=== PATIENT | female | born 1945 | race Hispanic/Latino ===

== ENCOUNTER 2017-02-26 09:15 | Outpatient (CLI) | payer MEDICARE ==
--- NOTE | 2017-02-26 09:38 | XRay Report ---
Right shoulder 3 views: History: Shoulder pain. Findings: Glenohumeral articulation and the a.c. joint articulation appears unremarkable. Mild arthritic changes. There is fracture noted of the anatomic neck of the humerus. Impaction at the site of fracture. Impression: Findings as detailed above.
== END 2017-02-26 09:16 | disposition home or self-care (01) ==
LOC: SPVIMAG 09:15 → XRAY 09:15 → SPVIMAG 09:16
PROVIDERS: ATTEND Orthopaedic Surgery Sports Medicine
DX: S42.291A Other displaced fracture of upper end of right humerus, initial encounter for closed fracture (principal); M19.011 Primary osteoarthritis, right shoulder; X58.XXXA Exposure to other specified factors, initial encounter; Y93.89 Activity, other specified; Y92.89 Other specified places as the place of occurrence of the external cause; Y99.8 Other external cause status

== ENCOUNTER 2017-05-04 13:10 | Outpatient (CLI) | payer MEDICARE ==
--- NOTE | 2017-05-04 21:34 | XRay Report ---
FINAL REPORT PROCEDURE: Right hip series TECHNIQUE: RIGHT hip radiographs, AP and lateral views. HISTORY: RIGHT HIP PAIN COMPARISON: No prior studies are available for comparison. FINDINGS: There is a total right hip prosthesis in place with a long intramedullary component in the right femur. There are cerclage wires along the proximal end of the device and proximal femur. There appears to been a modification. There appears to have been an osteotomy involving the proximal 3rd of the femur. I do not see bony union at the operative site. There is a separate linear fragment of bone projecting medial to the surgical site measuring 3.6 x 0.4 centimeters. I do not see evidence of loosening of the prosthesis. There is no dislocation of the device. There is mild osteoarthritic change in the left hip. IMPRESSION: Total right hip prosthesis in place. I suspect this has been modified. Large intramedullary component extends into the right femur. There is a linear fragment of bone along the medial aspect of the osteotomy site, I suspect this is related to the previous surgery.
== END 2017-05-04 13:11 | disposition home or self-care (01) ==
LOC: SPVIMAG 13:10
PROVIDERS: ATTEND Orthopaedic Surgery Sports Medicine
DX: M25.551 Pain in right hip (principal); Z96.641 Presence of right artificial hip joint

== ENCOUNTER 2017-06-01 13:53 | Outpatient (CLI) | payer MEDICARE ==
--- NOTE | 2017-06-01 19:00 | XRay Report ---
FINAL REPORT EXAM: XR HIP 2-3V RT HISTORY: PAIN IN RIGHT HIP TECHNIQUE: Right hip AP pelvis and three views of the right hip PRIORS: Comparison is dated May 04, 2017 FINDINGS: There is right hip prosthesis present in stable position. Osteotomy line seen proximal femur adjacent bony fragment again noted no evidence for bony union at this time no change since prior exam. Cerclage wires are noted along the proximal end of the femoral stem. No change seen overall since the prior exam. Mild degenerative changes noted at the left hip IMPRESSION: Right hip prosthesis in stable position. Stable appearance at osteotomy line noted proximal femur no evidence for bony union at this time Mild degenerative change at the left hip
== END 2017-06-01 13:54 | disposition home or self-care (01) ==
LOC: SPVIMAG 13:53
PROVIDERS: ATTEND Orthopaedic Surgery Sports Medicine
DX: M25.551 Pain in right hip (principal); Z96.641 Presence of right artificial hip joint

== ENCOUNTER 2017-07-06 14:07 | Outpatient (CLI) | payer MEDICARE ==
--- NOTE | 2017-07-06 21:29 | XRay Report ---
FINAL REPORT PROCEDURE: XR HIP 2-3V RT TECHNIQUE: RIGHT hip radiographs, 2 views each, including AP view of the pelvis. HISTORY: PAIN IN RIGHT HIP COMPARISON: 05/04/2017 and 06/01/2017 FINDINGS: A total right hip prosthesis is again identified demonstrating satisfactory alignment and without interval change. There is no new fracture. IMPRESSION: Satisfactory alignment of the right hip prosthesis without interval change.
== END 2017-07-06 14:08 | disposition home or self-care (01) ==
LOC: SPVIMAG 14:07
PROVIDERS: ATTEND Orthopaedic Surgery Sports Medicine
DX: M25.551 Pain in right hip (principal); Z96.641 Presence of right artificial hip joint